=== PATIENT | male | born 1960 | race Caucasian/White ===

== ENCOUNTER 2024-04-06 14:48 | Outpatient (AMB) | payer OTHER, SELFPAY ==
[2024-04-06 14:50] VITALS: BP 124/70; PULSE 61; O2SAT 98; BMI 27.2
--- NOTE | 2024-04-06 14:50 | HO.NEPHOV_ITS ---
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 Accompanied by: Spouse Allergies tirzepatide [From James] Allergy (Unknown, Verified 04/06/24 14:53) Diarrhea Medication List - Last Reconciled 04/06/24 by Sean Mckeon MD amlodipine 5 mg PO DAILY aspirin 81 mg PO DAILY atenolol-chlorthalidone 100-25 mg 1 tab PO DAILY empagliflozin (Jardiance) 10 mg PO DAILY insulin glargine (Lantus Solostar U-100 Insulin) 25 units subcut lisinopril 40 mg PO DAILY meloxicam 15 mg PO DAILY PRN metformin 1,000 mg PO BID oxycodone mg PO DAILY PRN rosuvastatin 40 mg PO DAILY HPI Comments Details: Luis is a pleasant 64-year-old man with a history of diabetes mellitus for almost 20 years. Overall blood sugar has been well controlled. He also history of hypertension. He is on lisinopril 40 mg, atenolol with chlorthalidone. There has been no recent change in the dosage. Serum creatinine has been between 1.1 and 1.2 mg/dL for last few years. In October and 02/27/2024 serum creatinine was 1.4 mg/dL hence this referral. He was also had 1+ proteinuria by dipstick. Few months ago Jardiance has been added. History of coronary artery disease status post stent placement some more than 10 years ago. History of to renal stones. Underwent urological procedure more than 10 years ago. No further renal stones. Recent renal ultrasonogram done within the last year at the urology office was reportedly unremarkable. History of dyslipidemia. He has stopped taking statins recently due to myalgia. Family history of diabetes mellitus. No family history of kidney disease. He has no history of smoking. No history of any alcohol abuse. [facility] Medical History (Updated 04/06/24 @ 15:25 by Sean Mckeon MD) Hypertriglyceridemia Hypercholesterolemia History of kidney stones Spinal stenosis of lumbar region Discogenic lumbar pain Albuminuria Renal disorder Chronic kidney disease, stage 1 Cyst of left kidney Left inguinal hernia Coronary arteriosclerosis Hypertensive renal disease Thyroid nodule Neuropathy Surgical History History of left hip replacement (~01/2022) Family History Mother Diabetes mellitus Hypertensive disorder Arthritis Heart disease Kidney disease Depressive disorder Sister Diabetes mellitus Father Diabetes mellitus Physical Exam Vital Signs: Last Vital Signs Pulse 61 04/06/24 14:50 BP 124/70 04/06/24 14:50 Pulse Ox 98 04/06/24 14:50 Oxygen Delivery Method Room Air 04/06/24 14:50 BMI result Body Mass Index 27.2 Const General: comfortable; No acute distress Orientation/consciousness: patient oriented x3 Eyes General: appearance normal, both eyes and all related structures Visual Acevedo: normal visual acevedo by confrontation Neck Neck: Yes supple and Yes no JVD Resp Effort & Inspection: normal respiratory effort and respiratory effort not decreased Auscultation: rhonchi Cardio Palpation: no palpable S3 and no palpable S4 Heart sounds: no rubs GI Inspection: Yes normal to inspection Palpation (GI): Soft to palpation Percussion: Yes normal to percussion Auscultation: normal bowel sounds General: Yes no CVA tenderness Back/Spine/Pelvis Back: no CVA tenderness Skin General skin exam: no petechiae and no purpura Neuro General: patient oriented x3 and no focal motor deficits Extrem General: No clubbing and No edema Results Reviewed Results Reviewed: 02/27/2024 serum creatinine 1.4 UA shows 1+ proteinuria no blood. Nephrology Results: No Data to Display Assessment & Plan Assessment & Plan (1) CKD (chronic kidney disease): Code(s): N18.9 - Chronic kidney disease, unspecified Category: Medical (2) Proteinuria: Code(s): R80.9 - Proteinuria, unspecified Category: Medical (3) HTN (hypertension): Code(s): I10 - Essential (primary) hypertension Category: Medical (4) Diabetes mellitus: Code(s): E11.9 - Type 2 diabetes mellitus without complications Category: Medical Plan 64-year-old man with longstanding diabetes mellitus and hypertension with mild CKD with non nephrotic range proteinuria. Proteinuria is most likely due to underlying diabetic hypertensive kidney disease. I will quantify the proteinuria and initiate workup. Check urine protein creatinine ratio. CKD is most likely due to hypertensive diabetic kidney disease. No evidence of obstruction based on recent ultrasonogram. Urine findings are rather benign and therefore glomerular nephritis or interstitial disease seem unlikely at this point. Recommendation Check urine protein creatinine ratio. Check 24 urine collection for creatinine clearance Maintain blood pressure less than 130/80 Agree with SUKHDEEP inhibition and SGLT2 inhibitor for cardiorenal protection. Continue overt nephrotoxic agents including NSAIDs. Encouraged to stand low-sodium diet Increase p.o. fluid intake. Further workup will be determined based on the outcome of the above investigations. I have reassured him and we will keep you updated. Orders: Orders Total Protein Urine Random Today N18.9 - Chronic kidney disease, unspecified, R80.9 - Proteinuria, unspecified Creatinine Clearance Urine 24U Today N18.9 - Chronic kidney disease, unspecified, R80.9 - Proteinuria, unspecified Basic Metabolic Panel Today N18.9 - Chronic kidney disease, unspecified, R80.9 - Proteinuria, unspecified Protein Electrophoresis, Serum Today N18.9 - Chronic kidney disease, unspecified, R80.9 - Proteinuria, unspecified Creatinine, 24 Hr Group Today N18.9 - Chronic kidney disease, unspecified, R80.9 - Proteinuria, unspecified Creatinine Urine Today N18.9 - Chronic kidney disease, unspecified, R80.9 - Proteinuria, unspecified UA and rflx microscopic Today N18.9 - Chronic kidney disease, unspecified, R80.9 - Proteinuria, unspecified Coding Level of Care Code New Pt Level 4 (46198) Diagnoses CKD (chronic kidney disease) N18.9 Proteinuria R80.9 HTN (hypertension) I10 Diabetes mellitus E11.9
== END 2024-04-06 15:22 | disposition home or self-care (01) ==
LOC: HO.HKA 14:48
PROVIDERS: PCP Pediatrics; Referring Provider Pediatrics; Visit Provider Internal Medicine Hypertension Specialist
DX: I12.9 Hypertensive chronic kidney disease with stage 1 through stage 4 chronic kidney disease, or unspecified chronic kidney disease (principal); E11.22 Type 2 diabetes mellitus with diabetic chronic kidney disease; N18.2 Chronic kidney disease, stage 2 (mild); R80.9 Proteinuria, unspecified
CPT/HCPCS: 99204

== ENCOUNTER → 2024-04-06 14:48 | Outpatient (BNVA) | payer OTHER, SELFPAY | PROVIDERS: PCP Pediatrics; Referring Provider Pediatrics; Visit Provider Internal Medicine Hypertension Specialist ==

== ENCOUNTER 2024-05-10 14:09 | Outpatient (AMB) | payer OTHER, SELFPAY ==
--- NOTE | 2024-05-10 14:13 | HO.NEPHOV_ITS ---
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 Accompanied by: Spouse Allergies tirzepatide [From Nabilro] Allergy (Unknown, Verified 05/10/24 14:15) Diarrhea Medication List - Last Reconciled 05/10/24 by Sean Mckeon MD amlodipine 5 mg PO DAILY aspirin 81 mg PO DAILY atenolol-chlorthalidone 100-25 mg 1 tab PO DAILY empagliflozin (Jardiance) 10 mg PO DAILY insulin glargine (Lantus Solostar U-100 Insulin) 25 units subcut lisinopril 40 mg PO DAILY meloxicam 15 mg PO DAILY PRN metformin 1,000 mg PO BID oxycodone mg PO DAILY PRN rosuvastatin 40 mg PO DAILY HPI Comments Details: Luis is a pleasant 64-year-old man with a history of diabetes mellitus for almost 20 years. Overall blood sugar has been well controlled. He also history of hypertension. He is on lisinopril 40 mg, atenolol with chlorthalidone. There has been no recent change in the dosage. Serum creatinine has been between 1.1 and 1.2 mg/dL for last few years. In October and 02/27/2024 serum creatinine was 1.4 mg/dL hence this referral. He was also had 1+ proteinuria by dipstick. Few months ago Jardiance has been added. History of coronary artery disease status post stent placement some more than 10 years ago. History of to renal stones. Underwent urological procedure more than 10 years ago. No further renal stones. Recent renal ultrasonogram done within the last year at the urology office was reportedly unremarkable. History of dyslipidemia. He has stopped taking statins recently due to myalgia. Family history of diabetes mellitus. No family history of kidney disease. He has no history of smoking. No history of any alcohol abuse. [facility] Medical History (Updated 04/06/24 @ 15:25 by Sean Mckeon MD) Hypertriglyceridemia Hypercholesterolemia History of kidney stones Spinal stenosis of lumbar region Discogenic lumbar pain Albuminuria Renal disorder Chronic kidney disease, stage 1 Cyst of left kidney Left inguinal hernia Coronary arteriosclerosis Hypertensive renal disease Thyroid nodule Neuropathy Surgical History History of left hip replacement (~01/2022) Family History Mother Diabetes mellitus Hypertensive disorder Arthritis Heart disease Kidney disease Depressive disorder Sister Diabetes mellitus Father Diabetes mellitus Physical Exam Vital Signs: Last Vital Signs BP 118/62 05/10/24 14:14 BMI result Body Mass Index 26.6 Results Reviewed Nephrology Results: No Data to Display Assessment & Plan Assessment & Plan (1) CKD (chronic kidney disease): Code(s): N18.9 - Chronic kidney disease, unspecified Category: Medical (2) Proteinuria: Code(s): R80.9 - Proteinuria, unspecified Category: Medical (3) HTN (hypertension): Code(s): I10 - Essential (primary) hypertension Category: Medical (4) Diabetes mellitus: Code(s): E11.9 - Type 2 diabetes mellitus without complications Category: Medical Plan 64-year-old man with longstanding diabetes mellitus and hypertension with mild CKD with non nephrotic range proteinuria. urine protein creatinine ratio was 130. Not a significant amount. CKD is most likely due to hypertensive diabetic kidney disease. No evidence of obstruction based on recent ultrasonogram. Urine findings are rather benign and therefore glomerular nephritis or interstitial disease seem unlikely at this point. Maintain blood pressure less than 130/80 Agree with SUKHDEEP inhibition and SGLT2 inhibitor for cardiorenal protection. Avoid nephrotoxic agents including NSAIDs. Encouraged to stay on low-sodium diet Increase p.o. fluid intake. Orders: Orders Basic Metabolic Panel 3 Months N18.9 - Chronic kidney disease, unspecified Basic Metabolic Panel 6 Months N18.9 - Chronic kidney disease, unspecified Coding Level of Care Code Est Pt Level 4 (25708) Diagnoses CKD (chronic kidney disease) N18.9 Proteinuria R80.9 HTN (hypertension) I10 Diabetes mellitus E11.9
[2024-05-10 14:14] VITALS: BP 118/62; BMI 26.6
== END 2024-05-10 14:31 | disposition home or self-care (01) ==
PROVIDERS: PCP Pediatrics; Visit Provider Internal Medicine Hypertension Specialist
DX: I12.9 Hypertensive chronic kidney disease with stage 1 through stage 4 chronic kidney disease, or unspecified chronic kidney disease (principal); E11.22 Type 2 diabetes mellitus with diabetic chronic kidney disease; N18.2 Chronic kidney disease, stage 2 (mild); R80.9 Proteinuria, unspecified
CPT/HCPCS: 99214

== ENCOUNTER → 2024-05-10 14:09 | Outpatient (BNVA) | payer OTHER, SELFPAY | PROVIDERS: PCP Pediatrics; Visit Provider Internal Medicine Hypertension Specialist ==

== ENCOUNTER 2024-11-15 14:20 | Outpatient (AMB) | payer OTHER, SELFPAY ==
--- NOTE | 2024-11-15 14:22 | HO.NEPHOV_ITS ---
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 Overall blood sugar has been well controlled. He also history of hypertension. He is on lisinopril 40 mg, atenolol with chlorthalidone. There has been no recent change in the dosage. Serum creatinine has been between 1.1 and 1.2 mg/dL for last few years. In October and 02/27/2024 serum creatinine was 1.4 mg/dL hence this referral. He was also had 1+ proteinuria by dipstick. Few months ago Jardiance has been added. History of coronary artery disease status post stent placement some more than 10 years ago. History of to renal stones. Underwent urological procedure more than 10 years ago. No further renal stones. Recent renal ultrasonogram done within the last year at the urology office was reportedly unremarkable. History of dyslipidemia. He has stopped taking statins recently due to myalgia. Family history of diabetes mellitus. No family history of kidney disease. He has no history of smoking. No history of any alcohol abuse. 11/15/24 64-year-old male presenting with diabetes mellitus for a routine nephrology follow-up. The focus of the visit was to assess renal function stability considering his chronic kidney disease likely Stage 2. His laboratory evaluations displayed stable creatinine levels, minimally changing from 1.11 to 1.12, with past levels as high as 1.4, which have decreased steadily to the current measurement. His control of diabetes is maintained with an A1c of 6.2, reflecting stable glycemic regulation. He shows no signs suggestive of worsening kidney function, such as proteinuria or significant changes in BUN, recorded within the normal range. Blood pressure monitoring remains well-controlled at 120/60 mmHg. Previous kidney function compared to earlier labs has shown improvement, aligning with the current stable state. He has been conscientious of his fluid intake and dietary salt, seemingly supporting kidney function maintenance. [facility] Medical History (Updated 04/06/24 @ 15:25 by Sean Mckeon MD) Hypertriglyceridemia Hypercholesterolemia History of kidney stones Spinal stenosis of lumbar region Discogenic lumbar pain Albuminuria Renal disorder Chronic kidney disease, stage 1 Cyst of left kidney Left inguinal hernia Coronary arteriosclerosis Hypertensive renal disease Thyroid nodule Neuropathy Surgical History History of left hip replacement (~01/2022) Family History Mother Diabetes mellitus Hypertensive disorder Arthritis Heart disease Kidney disease Depressive disorder Sister Diabetes mellitus Father Diabetes mellitus Physical Exam Vital Signs: Last Vital Signs Pulse 58 11/15/24 14:25 BP 120/60 11/15/24 14:25 Pulse Ox 98 11/15/24 14:25 Oxygen Delivery Method Room Air 11/15/24 14:25 BMI result Body Mass Index 25.5 Const General: comfortable; No acute distress Orientation/consciousness: patient oriented x3 Eyes General: appearance normal, both eyes and all related structures Visual Acevedo: normal visual acevedo by confrontation Neck Neck: Yes supple and Yes no JVD Resp Effort & Inspection: normal respiratory effort and respiratory effort not decreased Auscultation: rhonchi Cardio Palpation: no palpable S3 and no palpable S4 Heart sounds: no rubs GI Inspection: Yes normal to inspection Palpation (GI): Soft to palpation Percussion: Yes normal to percussion Auscultation: normal bowel sounds General: Yes no CVA tenderness Back/Spine/Pelvis Back: no CVA tenderness Skin General skin exam: no petechiae and no purpura Neuro General: patient oriented x3 and no focal motor deficits Extrem General: No clubbing and No edema Results Reviewed Nephrology Results: No Data to Display Assessment & Plan Assessment & Plan (1) CKD (chronic kidney disease): Code(s): N18.9 - Chronic kidney disease, unspecified Category: Medical (2) Proteinuria: Code(s): R80.9 - Proteinuria, unspecified Category: Medical (3) HTN (hypertension): Code(s): I10 - Essential (primary) hypertension Category: Medical (4) Diabetes mellitus: Code(s): E11.9 - Type 2 diabetes mellitus without complications Category: Medical Plan 64-year-old man with longstanding diabetes mellitus and hypertension with mild CKD with non nephrotic range proteinuria. urine protein creatinine ratio was 130. Not a significant amount. CKD is most likely due to hypertensive diabetic kidney disease. No evidence of obstruction based on recent ultrasonogram. Urine findings are rather benign and therefore glomerular nephritis or interstitial disease seem unlikely at this point. Cr is down to 1.12 ( from 1.4 in Feb 2024) Maintain blood pressure less than 130/80 Agree with SUKHDEEP inhibition and SGLT2 inhibitor for cardiorenal protection. Avoid nephrotoxic agents including NSAIDs. Encouraged to stay on low-sodium diet Increase p.o. fluid intake. Orders: Orders Basic Metabolic Panel 9 Months I10 - Essential (primary) hypertension, N18.9 - Chronic kidney disease, unspecified Total Protein Urine Random 9 Months I10 - Essential (primary) hypertension, N18.9 - Chronic kidney disease, unspecified UA and rflx microscopic 9 Months I10 - Essential (primary) hypertension, N18.9 - Chronic kidney disease, unspecified Creatinine Urine 9 Months I10 - Essential (primary) hypertension, N18.9 - Chronic kidney disease, unspecified Coding Level of Care Code Est Pt Level 4 (63432) Diagnoses CKD (chronic kidney disease) N18.9 Proteinuria R80.9 HTN (hypertension) I10 Diabetes mellitus E11.9
[2024-11-15 14:25] VITALS: BP 120/60; PULSE 58; O2SAT 98; BMI 25.5
--- OUTSIDE RECORDS SUMMARY | 2024-11-15 16:18 | XMS_ITS | Data Portability ---
Author Organization [facility], Main Office Address [address] [facility] [facility] [place] [id number] Care Team Providers Care Historic Interpreter Name Role Phone [facility] Vehicle Assembler NATASHA SMALLS Supply Chain Logistics Manager DANNI KILPATRICK Numerical Control Machine Operator AUSTIN PASCAL Urologist MATTHEW DALTON Primary Care Provider [phone] BING JONES Walking Dragline Operator CONG PENA Delivery Man [facility]FUN[facility] Orthopedic Surgeon ESTRADA JOYA Experience Planning Strategist MICHAELA GUERRERO Vehicle Assembler Assessment No assessment recorded. Plan of Treatment Reminders Order Date Submit Date Provider Last Modified By Organization Details Last Modified Time Details Appointments BILLING ONLY 2024 09:45A M SHIN SCHEDULE Not available Not available Not available PE EST 2024 02:45P M Matthew Dalton MD Not available Not available Not available Lab CMP, serum or plasma 2024 025 [facility] (Centralized Electronic Ordering - All Locations), Patient Can Go To The Location Of Their Choice, [id number] 11/12/2024 16:03:32 magnesium , serum or plasma 2024 025 [facility] (Centralized Electronic Ordering - All Locations), Patient Can Go To The Location Of Their Choice, [id number] 11/12/2024 16:03:32 microalbu min/creat inine, mass ratio, urine 2024 025 [facility] (Centralized Electronic Ordering - All Locations), Patient Can Go To The Location Of Their Choice, [id number] 11/12/2024 16:27:10 lipid panel, serum 2024 025 [facility] ([facility] - [facility] Locations), Patient Can Go To The Location Of Their Choice, [id number] 11/12/2024 16:03:32 hemoglobi n A1C, fingersti ck 2024 025 CHIVO In-Office Order, Internal Use Only DO Not Attach Compendium DO Not Attach Compendium, Do Not Delete/merge, [id number] 11/12/2024 15:47:04 magnesium , serum or plasma 2024 025 [facility] ([facility] Order[facility] - All Locations), Patient Can Go To The Location Of Their Choice, [id number] 08/14/2024 06:07:48 BMP, serum or plasma 2024 025 [facility] (Centralized Electronic Ordering - All Locations), Patient Can Go To The Location Of Their Choice, [id number] 08/14/2024 06:07:47 hemoglobi n A1C, fingersti ck 2024 025 [facility] In-Office Order, Internal Use Only DO Not Attach Compendium DO Not Attach Compendium, Do Not Delete/merge, [id number] 06/18/2024 15:33:48 Referral None recorded. Procedures None recorded. Surgeries None recorded. Imaging None recorded. Medication Orders lisinopri l 20 mg tablet 2024 025 [id number], [address] [place], [address], 11/12/2024 16:01:42 Patient TargetsNo targets recorded. Patient Instructions Encounter Date Encounter Id Patient Instructions Last Modified By Organization Details Last Modified Time 06/18/2024 [id number] medicines to avoid with kidney disease: care instructions Not available 06/18/2024 15:46:45 Medications (OTC, herbal therapies, supplements) reviewed and reconciled with patient and or caregiver, including potential side effects, drug interactions, instructions, and the consequences of not taking medication. Reviewed potential barriers to medication adherence, such as side effects from medication or cost of medication. [email or web address] Not available 06/18/2024 15:25:53 11/12/2024 [id number] medicines to avoid with kidney disease: care instructions Not available 11/12/2024 15:54:25 Medications (OTC, herbal therapies, supplements) reviewed and reconciled with patient and or caregiver, including potential side effects, drug interactions, instructions, and the consequences of not taking medication. Reviewed potential barriers to medication adherence, such as side effects from medication or cost of medication. nancy Not available 11/12/2024 15:37:40 Reason for Referral None Reported. Results Created Date Observation Date Name Description Value Unit Range Abnormal Flag Note LastModifiedBy Organization Detail LastModifiedTime 06/18/1906/18/2024 hemog lobin A1C, finge rstic k A1C 6.3 % 4-6 abnormal Not Available In-Office Order Internal Use Only DO Not Attach Compendium DO Not Attach Compendium, Do Not Delete/merge, [id number] 06/18/2024 12:52:05 08/14/1908/13/2024 BASIC METAB OLIC PANEL (8) glucose 135 mg/dL 70-99 above high normal Not Available [facility] ([facility]) [address] [place], [address], 08/14/2024 06:07:47 08/14/19 25 08/13/2024 BASIC METAB OLIC PANEL (8) BUN 24 mg/dL 8-27 normal Not Available [facility] ([facility]) [address] [place], [address], 08/14/2024 06:07:47 08/14/19 25 08/13/2024 BASIC METAB OLIC PANEL (8) creatinine 1.11 mg/dL 0.76-1 .27 normal Not Available [facility] ([facility]) [address] [place], [address], 08/14/2024 06:07:47 08/14/19 25 08/13/2024 BASIC METAB OLIC PANEL (8) eGFR 75 mL/mi n/1.7 3 >59 normal Not Available [facility] ([facility]) [address] [place], [address], 08/14/2024 06:07:47 08/14/19 25 08/13/2024 BASIC METAB OLIC PANEL (8) BUN/creatini ne ratio 22 10-24 normal Not Available [facility] ([facility]) [address] [facility] [place], [address], 08/14/2024 06:07:47 08/14/19 25 08/13/2024 BASIC METAB OLIC PANEL (8) sodium 139 mmol/ L 134-14 4 normal Not Available [facility] ([facility]) [address] [facility] [place], [address], 08/14/2024 06:07:47 08/14/19 25 08/13/2024 BASIC METAB OLIC PANEL (8) potassium 4.5 mmol/ L 3.5-5. 2 normal Not Available [facility] ([facility]) [address] [facility] [place], [address], 08/14/2024 06:07:47 08/14/19 25 08/13/2024 BASIC METAB OLIC PANEL (8) chloride 98 mmol/ L 96-106 normal Not Available [facility] ([facility]) [address] [facility] [place], [address], 08/14/2024 06:07:47 08/14/19 25 08/13/2024 BASIC METAB OLIC PANEL (8) carbon dioxide, total 23 mmol/ L 20-29 normal Not Available [facility] ([facility]) [address] [facility] [place], [address], 08/14/2024 06:07:47 08/14/19 25 08/13/2024 BASIC METAB OLIC PANEL (8) calcium 9.7 mg/dL 8.6-10 .2 normal Not Available [facility] ([facility]) [address] [facility], [place], [address], 08/14/2024 06:07:47 08/14/19 25 08/13/2024 MAGNE SIUM magnesium 2.1 mg/dL 1.6-2. 3 normal Not Available [facility] ([facility]) [address] [facility], [place], [address], 08/14/2024 06:07:48 11/13/19 25 11/12/2024 hemog lobin A1C, finge rstic k A1C 6.2 % 4-6 abnormal Not Available In-Office Order Internal Use Only DO Not Attach Compendium DO Not Attach Compendium, Do Not Delete/merge, [id number] 11/12/2024 15:37:50 08/10/19 25 ECG 12-le ad No observ ation record ed. [facility] [address] [place], [address], 08/10/2024 06:37:43 Result Notes None recorded. Problems Name Problem SNOMED Code Status Onset Date Resolution Date Notes Provider Name and Address Organization Details Recorded Time Hypertri glycerid emia 152371177 Active 2020 Not Available [facility] 23:02:24 Type 2 diabetes mellitus 23988088 Completed 202002/02/2021 Lise Pacheco PA-C [address] [facility] [address], [place], [address] , [facility] 14:50:21 Hypercho lesterol emia 56886979 Active 2020 Not Available [facility] 23:02:24 Creatine kinase level above referenc e range 991685893 Completed 202004/09/2021 Matthew Dalton MD [address] [facility] [address], [place], [address] , [facility] 1 13:28:28 Osteoart hritis of hip 551986588 Completed 202002/06/2023 Matthew Dalton MD [address], [place], [address] , [facility] 3 15:46:45 Degenera tion of lumbar interver tebral disc 40680878 Active 2020 Not Available [facility] 23:02:24 History of calculus of kidney 175199963 Active 2020 Not Available [facility] 1 23:02:24 Testoste jen level below referenc e range 124438752 Active 2020 Not Available [facility] 1 23:02:24 Osteoart hritis of left hip joint 84708285600 9108 Completed 202001/14/2022 Matthew Dalton MD [address], [place], [address] , [facility] 2 14:56:31 Spinal stenosis of lumbar region 76483193 Active 2020 Not Available [facility] 1 23:02:24 Microalb uminuric diabetic nephropa thy 253714013 Active 2020 Not Available [facility] 1 23:02:24 Lumbar discogen ic pain 841659393 Active 2020 Not Available [facility] 1 23:02:24 Albuminu aristeo 752370968 Active 2021 Matthew Dalton MD [address], [place], [address] , [facility] 2 21:46:31 Renal disorder due to type 2 diabetes mellitus 024584764 Active 2021 Matthew Dalton MD [address], [place], [address] , [facility] 2 09:44:36 Displace ment of lumbar interver tebral disc without myelopat hy 46972584 Active 2021 Matthew Dalton MD [address] [address], [place], [address] , [facility] 2 11:53:31 History of left hip replacem ent 35881412437 [address] Active 2021 Matthew Dalton MD [address] [facility] [address], [place], [address] , [facility] 2 14:56:41 Cyst of kidney 135538261 Active 2021 left Matthew Dalton MD [address] [facility] [address], [place], [address] , [facility] 2 15:18:51 Left inguinal hernia 809563122 Active 2021 Matthew Dalton MD [address] [address], [place], [address] , [facility] 2 15:19:14 Ulnar neuropat hy 001908169 Completed 202102/06/2023 Matthew Dalton MD [address] [address], [place], [address] , [facility] 3 15:46:49 Long-ter m current use of insulin 146773237 Active 2022 Lise Pacheco PA-C [address] [facility] [address], [place], [address] , [facility] 3 16:02:45 Coronary arterios clerosis 22574410 Active 2022 Matthew Dalton MD [address] [facility] [address], [place], [address] , [facility] 3 19:31:25 Thyroid nodule 274674724 Active 2022 right isthmus 1.4cm, needs 1 yr f/u Matthew Dalton MD [address], [place], [address] , [facility] 3 19:14:38 Microalb uminuria 452131221 Active 2022 Lise Pacheco PA-C [address] [facility] [address], [place], [address] , [facility] 3 14:51:36 Hyperten sive renal disease 19107284 Active 2022 Dipti Toure null, [facility] 3 13:01:50 Neuropat hy due to diabetes mellitus 290611591 Active 2023 Matthew Dalton MD [address], [place], [address] , [facility] 4 10:49:25 Internal hemorrho ids 97598228 Active 2023 Matthew Dalton MD [address], [place], [address] , [facility] 4 23:14:06 Hyperten sive nephrosc lerosis 758760144 Active 2023 Matthew Dalton MD [address] [facility] [address], [place], [address] , [facility] 4 12:27:57 Chronic kidney disease stage 2 820132654 Active 2024 Lise Pacheco PA-C [address], [place], [address] , [facility] 5 12:51:37 Right bundle branch block 21014068 Active 2024 Matthew Dalton MD [address], [place], [address] , [facility] 5 06:37:33 Problem Notes None recorded. Procedures Surgical History Date Name Laterality Status Provider Name and Address Organization Details Recorded Time 2023 Colonoscopy completed Matthew Dalton MD [address], [place], [address], [facility] 4 05:47:53 2022 Diabetic Foot Exam (Monofilament) completed Matthew Dalton MD [address], [place], [address], [facility] 3 15:50:27 2021 iridotomy completed Matthew Dalton MD [address], [place], [address], [facility] 2 14:22:23 2021 Diabetic Foot Exam (Monofilament) completed Dominique Cardoza MA [facility] 2 14:18:35 2021 iridotomy completed Matthew Dalton MD [address] [facility] [address], [place], [address], [facility] 2 14:22:08 2021 total replacement of left hip joint completed Dianne Irwin RN [facility] 2 09:51:57 2021 stress echocardiography completed Matthew Dalton MD [address], [place], [address], [facility] 2 20:40:18 2013 cardiac catheterization completed Matthew Dalton MD [address], [place], [address], [facility] 1 22:39:02 2011 Colonoscopy completed Matthew Dalton MD [address], [place], [address], [facility] 1 10:17:12 2011 esophagogastroduodenoscopy completed Era Culver [facility] 1 15:00:11 2010 cardiac catheterization completed Matthew Dalton MD [address] [facility] [address], [place], [address], [facility] 3 19:32:29 Imaging Results None recorded. Procedure Notes None recorded. Medical Equipment None Reported. Allergies No known drug allergies Medications Name Sig Start Date Stop Date Status Note LastModified by Organization Details LastModified Time amoxicilli n 500 mg capsule TAKE 4 CAPSULES BY MOUTH 30-60 MIN PRIOR TO PROCEDUR E. active Not Available Not Available No t Available metformin 500 mg tablet TAKE 2 TABLETS BY MOUTH TWICE A DAY active Not Available Not Available No t Available atenolol 100 mg-chlorth alidone 25 mg tablet TAKE 1 TABLET BY MOUTH EVERY DAY active Not Available Not Available No t Available meloxicam 15 mg tablet TAKE 1 TABLET DAILY active Not Available Not Available No t Available lisinopril 20 mg tablet Take 1 tablet every day by oral route for 90 days. 2024 active Not Available Not Available Not Avai lable glipizide 10 mg tablet Take 1 tablet every day by oral route for 90 days. 04/09 completed Not Available Not Available Not Available prednisone 20 mg tablet 07/11 completed Not Available Not Available Not Available amlodipine 2.5 mg tablet TAKE 1 TABLET BY MOUTH EVERY DAY 01/14 completed Not Available Not Available Not Available potassium chloride ER 10 mEq tablet,ext ended release TAKE 1 TABLET DAILY active Not Available Not Available No t Available amlodipine 5 mg tablet TAKE 1 TABLET BY MOUTH EVERY DAY active Not Available Not Available No t Available tramadol 50 mg tablet TAKE 1 TO 2 TABLETS BY MOUTH EVERY 6 HOURS NEEDED FOR MILD PAIN. DO NOT EXCEED 8 TABLETS (400MG) PER DAY. 12/12 completed Not Available Not Available Not Available meloxicam 7.5 mg tablet Take 1 tablet every day by oral route for 45 days. 09/03 completed Not Available Not Available Not Available alprazolam 0.5 mg tablet Take 1 tablet every day by oral route for 30 days. 04/09 completed Not Available Not Available Not Available aspirin 325 mg tablet,del ayed release TAKE ONE TABLET TWICE A DAY FOR 30 DAYS. MEDICATI ON TO BE STARTED AFTER SURGERY. 12/07 completed Not Available Not Available Not Available OneTouch Ultra Test strips USE 1 STRIP THREE TIMES A DAY TO TEST BLOOD SUGAR active Not Available Not Available No t Available pantoprazo le 40 mg tablet,del ayed release TAKE 1 TABLET BY MOUTH EVERY DAY 12/12 completed Not Available Not Available Not Available docusate sodium 100 mg capsule TAKE 1 CAPSULE BY MOUTH TWICE A DAY DIRECTED . START AFTER SURGERY 12/12 completed Not Available Not Available Not Available lisinopril 40 mg tablet TAKE 1 TABLET BY MOUTH EVERY DAY active Not Available Not Available No t Available naproxen 500 mg tablet Take 1 tablet twice a day by oral route for 15 days. 12/26 completed Not Available Not Available Not Available oxycodone 5 mg tablet TAKE 1 TABLET BY MOUTH EVERY 4 HOURS UP TO 5 TIMES A DAY NEEDED FOR PAIN active Not Available Not Available No t Available rosuvastat in 10 mg tablet TAKE 1 TABLET DAILY 12/07 completed Not Available Not Available Not Available rosuvastat in 20 mg tablet TAKE 1 TABLET BY MOUTH EVERY DAY 09/03 completed Not Available Not Available Not Available rosuvastat in 40 mg tablet TAKE 1 TABLET BY MOUTH EVERY DAY active Not Available Not Available No t Available Multivitam in 50 Plus tablet Take 1 tablet every day by oral route. active Not Available Not Available No t Available BD Ultra-Fine Mini Pen Needle 31 gauge x 3/16 Take 1 needle every day by miscell. route for 90 days. active Not Available Not Available No t Available Lantus Solostar U-100 Insulin 100 unit/mL (3 mL) subcutaneo us pen INJECT 20 UNITS EVERY DAY BY SUBCUTAN EOUS ROUTE FOR 90 DAYS. 11/12 completed Not Available Not Available Not Available Lantus Solostar U-100 Insulin 10-20 u daily 10/07 completed Not Available Not Available Not Available GaviLyte-G 236 gram-22.74 gram-6.74 gram-5.86 gram oral solution TAKE 8 OUNCE BY MOUTH DIRECTED DRINK A GLASS EVERY 10-15 MINUTES 02/16 completed Not Available Not Available Not Available Jardiance 10 mg tablet TAKE 1 TABLET BY MOUTH EVERY DAY active Not Available Not Available No t Available Repatha SureClick 140 mg/mL subcutaneo us pen injector INJECT 1 ML (140 MG TOTAL) UNDER THE SKIN EVERY 14 DAYS. active Not Available Not Available No t Available Soliqua 100/33 100 unit-33 mcg/mL subcutaneo us insulin pen INJECT 40 UNITS UNDER THE SKIN DAILY DIRECTED (DOSE CHANGE) 04/16 completed Not Available Not Available Not Available OneTouch Ultra Blue Test Strip Take 1 strip twice a day by miscell. route for 90 days. 02/02 completed Not Available Not Available Not Available FreeStyle Wong 14 Day Buckner Take 1 each every day by miscell. route for 30 days. 09/04 completed Not Available Not Available Not Available FreeStyle Wong 14 Day Sensor kit APPLY 1 SENSOR TO SKIN, CHANGE EVERY 14 DAYS 09/04 completed Not Available Not Available Not Available aspirin 81 mg capsule Take 1 capsule every day by oral route. active Not Available Not Available No t Available Flowflex COVID-19 Antigen Home Test kit 02/06 completed Not Available Not Available Not Available Mounjaro 7.5 mg/0.5 mL subcutaneo us pen injector INJECT 7.5 MG SUBCUTAN EOUSLY WEEKLY 12/09 completed caused too much weight loss Not Available Not Available Not Available Mounjaro 5 mg/0.5 mL subcutaneo us pen injector Inject 0.5 mL every week by subcutan eous route. active Not Available Not Available No t Available Mounjaro 2.5 mg/0.5 mL subcutaneo us pen injector INJECT 2.5 MG SUBCUTAN EOUSLY WEEKLY active Not Available Not Available No t Available Dexcom G7 Stainless Steel Finisher USED WITH SENSOR DEVICE 2024 active Not Available Not Available Not Gisela talavera Dexcom G7 Sensor device APPLY 1 SENSOR EVERY 10 DAYS active Not Available Not Available No t Available Vitals Date Recorded Body height Body mass index (BMI) Body weight Heart rate Oxygen saturation Oxygen saturation in Arterial blood by Pulse oximetry Body temperature Systolic blood pressure Diastolic blood pressure Provider Name and Address Organization Details Last Updated DateTime 5 175.26 cm 25.8 kg/m2 95174.6 6 g 61 /min 98 % 98 % 97.3 [degF] 116 mm[Hg] 67 mm[Hg] Janel cordon MA [facility] 5 15:31:46 Date Recorded Body height Body mass index (BMI) Body weight Heart rate Oxygen saturation Oxygen saturation in Arterial blood by Pulse oximetry Body temperature Systolic blood pressure Diastolic blood pressure Provider Name and Address Organization Details Last Updated DateTime 5 175.26 cm 25.4 kg/m2 65059.8 9 g 59 /min 99 % 99 % 97.4 [degF] 99 mm[Hg] 58 mm[Hg] Alysha Moreira MA [facility] 5 15:47:15 Social History Question Answer Notes LastModified by Organizat ion Details LastModified Time Tobacco Smoking Status [facility]/21/2020 13:14:39 Do You Have An Advance Directive? Yes HCP/ Yandy elisha Information not available 01/14/2022 Is Blood Transfusion Acceptable In An Emergency? Yes Information not available 11/21/2020 What Is Your Level Of Caffeine Consumption? Moderate Information not available 11/21/2020 How Much Tobacco Do You Chew? None Information not available 11/21/2020 What Type Of Diet Are You Following? REGULAR Information not available 11/21/2020 Which Illicit Or Recreational Drugs Have You Used? None Information not available 11/21/2020 Live Alone Or With Others? With Others And Dog (Sandra) [email or web address] Information not available 02/17/2024 Do You Take Precautions To Prevent Distracted Driving? Yes Information not available 11/21/2020 How Often Do You Need To Have Someone Help You When You Read Instructions, Pamphlets, Or Other Written Material From Your Doctor Or Pharmacy? Never Information not available 11/21/2020 Have You Served In The ? No Information not available 11/21/2020 Have You Or Anyone In Your Household Had Any Of The Following Symptoms In The Last 14 Days: Sore Throat, Cough, Chills, Body Aches For Unknown Reasons, Shortness Of Breath For Unknown Reasons, Loss Of Smell, Loss Of Taste, Fever At Or Greater Than 100 Degrees Fahrenheit? No Information not available 11/21/2020 Are You Or Anyone In Your Household A Health Care Provider Or Emergency Responder? No Information not available 11/21/2020 To The Best Of Your Knowledge Have You Been In Close Proximity To Any Individual Who Tested Positive For COVID-19? No Information not available 11/21/2020 *AWV ONLY* Are You Presently Prescribed Opioid Medication By PCP Or Specialist? If YES -Provider Assess The Benefit For Other, Non-opioid Pain Therapies Instead, Even If The Patient Does Not Have OUD But Is Possibly At Risk. Yes Dr. Shonna tello Information not available 11/21/2020 Have You Recently Traveled To A COVID-19 High Risk Area Or Gathering In The Last 10 Days? No Information not available 11/21/2020 What Was The Date Of Your Most Recent Tobacco Screening? 11/12/2024 Information not available 11/12/2024 How Many Children Do You Have? 2 Information not available 11/21/2020 Do You Use Protection During Sex? Always Information not available 11/21/2020 Do You Use Your Seat Belt Or Car Seat Routinely? Yes Information not available 04/09/2021 Seat Belts Used Routinely Yes Information not available 01/14/2022 Are You Sexually Active? Yes Information not available 11/21/2020 Smoke Alarm In Home Yes [email or web address] Information not available 01/14/2022 Do You Have Smoke And Carbon Monoxide Detectors In Your Home? Yes Information not available 04/09/2021 At What Age Did You Start Smoking Tobacco? 0 Information not available 11/21/2020 Are You Passively Exposed To Smoke? No Information not available 11/21/2020 How Much Tobacco Do You Smoke? No Information not available 11/21/2020 Do You Use Sunscreen Routinely? Yes Information not available 11/21/2020 How Many Years Have You Smoked Tobacco? 0 Information not available 11/21/2020 Sex: Unknown Functional Status Question Answer Note LastModified by Organizat ion Details LastModified Time Do you use any illicit or recreational drugs? No Information not available 01/14/2022 Do you or have you ever used any other forms of tobacco or nicotine? No Information not available 01/14/2022 What is your level of alcohol consumption? Occasional Information not available 11/21/2020 Do you or have you ever used smokeless tobacco? Never used smokeless tobacco Information not available 11/21/2020 Are you currently employed? Yes Information not available 11/21/2020 Are you able to walk? YESWOREST Information not available 01/14/2022 Are you able to care for yourself? Yes Information not available 11/21/2020 What is your occupation? [employer] Information not available 11/21/2020 Do you or have you ever used e-cigarettes or vape? Never used electronic cigarettes [email or web address] Information not available 01/14/2022 What is your exercise level? Occasional On the job and weight lifting Information not available 02/17/2024 Mental Status None recorded. Family History Relationship Description Onset Age of this Age Resolved Age Notes LastModified by Organization Details LastModified Time Mother Diabetes mellitus abolcun Not available 2020 13:14:28 Mother Hypertensive disorder abolcun Not available 2020 13:14:28 Mother Arthritis abolcun Not available 11/21/2020 13:14:28 Mother Heart disease abolcun Not available 2021 14:15:25 Unspecified Relation Kidney disease abolcun Not available 2021 14:15:25 Unspecified Relation Depressive disorder abolcun Not available 2021 14:15:25 Sister Diabetes mellitus abolcun Not available 2020 13:14:28 Father Diabetes mellitus abolcun Not available 2021 14:15:25 Medical History Condition Response Gout Y Kidney Stones Y Arthritis Y High Cholesterol Y Heart Problems Y Diabetes Y Hypertension Y Chicken Pox Y Immunizations Vaccine Type Date Status Note Provider Name and Address Organization Details Recorded Time COVID-19, mRNA, LNP-S, PF, 30 mcg/0.3 mL dose 09/08/19 21 completed SHIN Rojas, [facility] 07/11/2021 15:16:04 COVID-19, mRNA, LNP-S, PF, 30 mcg/0.3 mL dose 09/29/19 21 completed SHIN Rojas, [facility] 07/11/2021 15:16:04 pneumococcal polysaccharide PPV23 11/22/19 21 completed SHIN Rojas, [facility] 01/14/2022 14:15:16 Tdap 11/22/19 21 completed SHIN Rojas, [facility] 01/14/2022 14:15:16 Influenza, split virus, quadrivalent, PF 04/09/20 21 cancelled patient objection Matthew Dalton MD [address], [address], [facility] 04/09/2021 13:24:13 Past Encounters Encounter ID Performer Location Encounter Start Date Encounter Closed Date Diagnosis/Indication Diagnosis SNOMED-CT Code Diagnosis ICD10 Code Diagnosis Note [id number] Matthew Dalton MD Main Office [address] [address] 11/21/2020 12:51:20 11/21/2020 14:14:19 Type 2 diabetes mellitus 99869810 E11.9 Pt encouraged to take basal insulin nightly regardless . May need to adjust dosing depending on A1C if having any hypoglycem ic events. Administra tion of viral vaccine 51206653 Z23 Will update per pt report. Will request records from Dr. Bronson. Essential hypertension 42147310 I10 Not at goal. Will increase ACEI dose if labs show stable renal function. Screening for malignant neoplasm of colon 480142963 Z12.11 Reports that screening has been done and is current. Will request records. Hepatitis C screening 41 1102457 Z11.59 Administra tion of pneumococcal vaccine 35442491 Z23 Will update per pt report. Will request records from Dr. Bronson. Hypercholesterolemia 136 93572 E78.01 On statin, will assess control. Myalgia/my ositis - multiple 930433986 M79.10 Screen for myositis given statin therapy. Request rheumatolo gy notes as well. Fatigue 03765322 R53.83 Screen for metabolic etiologies . Left lower quadrant pain 952732985 R10.32 Related to work injury. Pt advised that OOWN and eval/treat ment need to be arranged/c oordinated via workers comp. Had CT scan done with urology for this issue. Will request report. Degenerati on of lumbar intervertebral disc 33251544 M51.36 On chronic narcotic therapy from rheum. Will try to ascertain full scope of this issue. [id number] Matthew Dalton MD Main Office [address] [facility] [address] [facility] [place] [address] 12/26/2020 11:21:03 12/26/2020 12:19:06 Essential hypertension 51450860 I10 Not at goal. Will increase ACEI dose, d/c potassium supplement and monitor lytes/samuel l function with these changes. Testostero ne level below reference range 912825055 R79.89 Discussed replacemen t therapy risks and potential benefits. Pt would like to defer for now. Uncontroll ed type 2 diabetes mellitus 338136524 E11.65 Pt encouraged to take basal insulin nightly regardless . Based on poor control will try to get him on a CGM. Has appt with next month. Microalbum inuric diabetic nephropathy 155027449 E11.21 WIll monitor as we work on better HTN and DM control. [id number] Lise Pacheco PA-C Main Office [address] [facility] [address] 02/02/2021 14:25:38 02/02/2021 15:14:28 Uncontrolled type 2 diabetes mellitus 899849346 E11.65 Total time spent teaching and coordinati ng diabetic care 45 minutes. Basic physiology of Type II Diabetes Mellitus was reviewed. Glucose records were reviewed. Goal for fasting glucose is 80-130 and 1-2 hrs after the meal under 180.Pt. was instructed on 1800 eugenio ADA diet and given 7 day sample menus to use at home. Pt. was advised to continue exercise activity by walking 30 min most days of the week. Continue metformin. Lower glipizide to 5 mg. Start Soliqua at 15 u daily and continue Lantus at 20 u daily. For every increase in soliqua by 4 u , lower lantus by 4 u as well until on 10 u and then discontinu e. AFter 2 weeks glipizide will need to be discontinu e if glucose readings are coming down to under 100 range to avoid hypoglycem ia. F/u 3 weeks. [id number] Matthew Dalton MD Main Office [address] [place] [address] 04/09/2021 12:38:21 04/09/2021 13:27:28 Essential hypertension 09977559 I10 Not at goal. Will add CCB and titrate as tolerated togoal BP <130/90. Consider weaning BB depending on response. Needs infl uenza immunization 168149210 Z23 Osteoarthr itis of left hip joint 2274016361 06332 M16.12 Reportedly at the point of needing surgery. Will consult ortho. Hopefully they will send me notes. Spinal michelle nosis of lumbar region 57662927 M48.061 Dr. Kilpatrick recommende d surgical consultati on. No recent notes or imaging results from him. I will request and see if PMR has further mgmgt advice. Testostero ne level below reference range 743847213 R79.89 Discussed replacemen t therapy risks and potential benefits. Pt would like to defer for now. [id number] Lis lemons MD Main Office [address] [place] [address] 04/17/2021 15:24:28 04/17/2021 16:14:20 Uncontrolled type 2 diabetes mellitus 528071571 E11.65 Improving diabetic control with the addition of soliqua. D/c lantus, increase soliqua to 24 u daily. Continue metformin. F/u 3-4 m. [id number] Bernardino Menchaca MD Main Office [address] [place] [address] 07/11/2021 14:57:32 07/11/2021 15:35:12 Uncontrolled type 2 diabetes mellitus 031438626 E11.65 Worsened diabetic control although weight is down since the last visit. Increase soliqua from 40 u by 4 u every 5 days until am fasting is under 100 ot until 60 u max. Continue metformin and lower total carbs. F/u 6 weeks. [id number] Randell Fitzpatrick MD Main Office [address] [facility] [address] [place] [address] 08/17/2021 15:54:36 08/17/2021 16:26:50 Uncontrolled type 2 diabetes mellitus 171727807 E11.65 Blood sugars improved significan tly. WE will continue increasing Soliqua by 2 u every 35- days until am fasting is under 120. F/u 4 m. [id number] Matthew Dalton MD Main Office [address] [address] [place] [address] 09/03/2021 14:55:38 09/03/2021 15:48:15 Uncontrolled type 2 diabetes mellitus 724274745 E11.65 Under better control. Due for labs in November. Essential hypertension 17261240 I10 Will titrate CCB as tolerated to goal BP <130/90. Consider weaning BB depending on response. not sure if K supplement is needed so pt will stop 2 weeks before next labs. Testostero ne level below reference range 349545113 R79.89 Discussed replacemen t therapy risks and potential benefits. Pt would like to defer for now. Osteoarthr itis of left hip joint 6545767588 36656 M16.12 Having left THR done on 10/17. Nocturia 077617646 R35.1 [id number] Bernardino Menchaca MD Main Office [address] [address] [place] [address] 10/04/2021 08:25:23 10/04/2021 08:26:49 [id number] Randell Fitzpatrick MD Main Office [address] [address] [place] [address] 11/06/2021 10:03:18 11/06/2021 10:05:46 [id number] Randell Fitzpatrick MD Main Office [address] [address] [place] [address] 12/07/2021 10:14:12 12/07/2021 10:16:29 [id number] Randell Fitzpatrick MD Main Office [address] [address] [place] [address] 12/18/2021 15:28:25 12/18/2021 16:01:31 Renal disorder due to type 2 diabetes mellitus 352841437 E11.21 stable diabetic control but random hypoglycem ia on Soliqua due to weight loss. Decrease dose to 30 from 38u and continue metformin. Repeat microalbum in in 3 m. If still elevated, consider Jardiance to replace metfromin. Chronic ki dney disease stage 1 302113652 N18.1 continue acei. [id number] Randell Fitzpatrick MD Main Office [address] [facility] [address] [place] [address] 01/07/2022 08:54:10 01/07/2022 08:56:18 [id number] Matthew Dalton MD Main Office [address] [facility] [address] [place] [address] 01/14/2022 14:12:44 01/14/2022 15:22:21 Adult health examination 117031705 Z00.00 COVID boosters and Shingrix advised via local pharmacy. Flu advised in the Fall. Will screen based on risk factors. Regular dental and ophtho care advised as well as seat belt and suncreen use. Distracted driving discussed. Advance directives in place. Varicella vaccination 68 659495 Z23 Essential hypertension 67901836 I10 Well controlled , continue current regimen. Hypercholesterolemia 136 61976 E78.01 On statin, will assess control. Renal diso rder due to type 2 diabetes mellitus 492485602 E11.21 Under much better control. I will assume mgmt after next VM appt. Will request copy of recent ophtho exam. Body mass index 25-29 - overweight 601437400 E66.3 Z68.27 History of left hip replacement 1912723304 981559 Z96.642 Rx provided for prophylaxi s as advised by ortho. Ulnar neuropathy 2339641 05 G56.22 Advised to try cock up splint. If persistent /worse may need ortho vs neuro eval/EMG. Left inguinal hernia 236 462513 K40.90 Fat containing , not palpable on exam and not affording any symptoms. Will monitor clinically . Advised to call if swelling ever develops. To ED with pain. [id number] Randell Fitzpatrick MD Main Office [address] [facility] [address] [place] [address] 02/07/2022 09:03:33 02/07/2022 09:13:19 [id number] Bernardino Menchaca MD Main Office [address] [place] [address] 03/11/2022 10:40:53 03/11/2022 10:43:42 [id number] Randell Fitzpatrick MD Main Office [address] [facility] [address] [place] [address] 04/11/2022 08:42:33 04/11/2022 08:44:19 [id number] Randell Fitzpatrick MD Main Office [address] [facility] [address] [place] [address] 04/24/2022 13:54:32 04/24/2022 15:20:15 Renal disorder due to type 2 diabetes mellitus 174710521 E11.21 CGM data fro March 30 through April 11 reviewed. No hypoglycem ia, 76% of the readings were on target. HgA1c is 6.9%. Continue soliqua and metformin as directed. f/u in 4 m. Influenza vaccination declined 874849161 Z28.21 Chronic ki dney disease stage 1 024333319 N18.1 continue acei. Essential hypertension 73851840 I10 rec low salt diet and monitor BP at home. f/u was already scheduled with Dr. Dalton in July. Body mass index 25-29 - overweight 751202772 E66.3 Z68.27 Pt's BMI is 28.5 and has gained 7lbs since January 2022. rec low fat and low calorie diet. [id number] Lise Pacheco PA-C Main Office [address] [facility] [address] [place] [address] 05/13/2022 13:52:49 05/13/2022 13:55:56 [id number] Randell Fitzpatrick MD Main Office [address] [facility] [address] [place] [address] 06/13/2022 10:36:30 06/13/2022 10:41:14 [id number] Matthew Dalton MD Main Office [address] [facility] [address] [place] [address] 07/15/2022 11:41:20 07/15/2022 11:43:19 [id number] Randell Fitzpatrick MD Main Office [address] [address] [place] [address] 08/12/2022 13:30:51 08/12/2022 13:32:59 [id number] Randell Fitzpatrick MD Main Office [address] [address] [place] [address] 09/03/2022 15:24:56 09/03/2022 16:01:54 Renal disorder due to type 2 diabetes mellitus 423526956 E11.21 stable type II DM with mild microalbum inuria. We will repeat cmp and urine , continue current meds. F/u 3-4 m. Chronic ki dney disease stage 1 430049493 N18.1 continue acei. Long-term current use of insulin 736265007 Z79.4 [id number] Randell Fitzpatrick MD Main Office [address] [address] [place] [address] 09/13/2022 08:41:00 09/13/2022 08:43:07 [id number] Randell Fitzpatrick MD Main Office [address] [address] [place] [address] 10/15/2022 09:46:34 10/15/2022 09:49:45 [id number] Randell Fitzpatrick MD Main Office [address] [address] [place] [address] 11/15/2022 15:46:14 11/15/2022 15:48:51 [id number] Randell Fitzpatrick MD Main Office [facility] [address] [place] [address] 12/06/2022 15:21:14 12/06/2022 16:29:07 Renal disorder due to type 2 diabetes mellitus 255167406 E11.21 HgA1c is elevated on max Soliqua. Recommend to start mounjaro 2.5 mg weekly for 4 weeks , then 5 mg weekly until next visit in 2 m. Soliqua will be discontinu ed if pt tolerates MOunjaro and insurance coverage is available. Chronic ki dney disease stage 1 846420045 N18.1 continue acei. [id number] ELTON GUILLAUME MD Main Office [address] [address] [place] [address] 12/27/2022 09:43:50 12/27/2022 09:50:30 [id number] Randell Fitzpatrick MD Main Office [address] [address] [place] [address] 01/24/2023 11:43:26 01/24/2023 11:46:42 [id number] Matthew Dalton MD Main Office [address] [address] [place] [address] 02/06/2023 14:47:14 02/06/2023 15:53:57 Adult health examination 867084355 Z00.00 COVID booster, flu and Shingrix advised via local pharmacy. Will screen based on risk factors. Regular dental and ophtho care advised as well as seat belt and suncreen use. Distracted driving discussed. Advance directives in place. Essential hypertension 13425221 I10 Well controlled , continue current regimen. Hypercholesterolemia 136 83816 E78.01 On statin, will assess control. Renal diso rder due to type 2 diabetes mellitus 046850392 E11.21 Under much better control. Optho exam utd, working with on control. Body mass index 25-29 - overweight 849078750 E66.3 Z68.29 History of left hip replacement 1160676149 270001 Z96.642 Rx provided for prophylaxi s as advised by ortho. Left inguinal hernia 236 354455 K40.90 Fat containing , not palpable on exam and not affording any symptoms. Will monitor clinically . Advised to call if swelling ever develops. To ED with pain. Nocturia 604480272 R35.1 Varicella vaccination 68 075592 Z23 Pain in both feet 944158 8172 1067553 M79.671 M79.672 Thyroid nodule 307317896 E04.1 See if u/s corroborat es exam findings. Coronary arteriosclerosis 08562099 I25.10 Asymptomat ic with fair risk factor control. Following with cardiology , will reassess labs. Testostero ne level below reference range 290807025 R79.89 Discussed replacemen t therapy risks and potential benefits. Pt would like to defer for now. Screening for malignant neoplasm of colon 904384855 Z12.11 Has GI appt upcoming. [id number] Randell Fitzpatrick MD Main Office [address] [facility] [address] [place] [address] 03/28/2023 09:26:05 03/28/2023 09:30:13 [id number] Randell Fitzpatrick MD Main Office [address] [facility] [address] [place] [address] 04/16/2023 14:25:03 04/16/2023 14:54:36 Renal disorder due to type 2 diabetes mellitus 425798148 E11.21 Stable diabetic control on mounjaro and metfromin. WE will reduce dose of metfromin to 3 tabs daily total of 1500 mg daily to avoid GI upset. Next CGM upload is scheduled for later this month. Repeat labs in June for A1c, bmp and microalbum in. F/u 4 m. Chronic ki dney disease stage 1 845610076 N18.1 continue acei. Microalbuminuria 2634582 06 R80.9 repeat microalbum in prior to next visit. Hypertensi ve renal disease 01642439 I12.9 stable HTN on low sodium diet and medication s. [id number] Randell Fitzpatrick MD Main Office [address] [address] [place] [address] 04/29/2023 13:15:42 04/29/2023 13:27:03 [id number] Randell Fitzpatrick MD Main Office [address] [address] [place] [address] 05/27/2023 08:47:50 05/27/2023 08:56:11 [id number] Randell Fitzpatrick MD Main Office [address] [address] [place] [address] 06/30/2023 08:59:56 06/30/2023 09:05:05 [id number] Matthew Dalton MD Main Office [address] [address] [place] [address] 07/30/2023 08:48:46 07/30/2023 08:52:49 [id number] ELTON GUILLAUME MD Main Office [address] [address] [place] [address] 09/05/2023 14:52:33 09/05/2023 15:32:58 Renal disorder due to type 2 diabetes mellitus 847159608 E11.21 Stable diabetic control on mounjaro and metfromin. Mounjaro 7.5 mg is not always available i the store. WE will begin jardiance at 10 mg for renal protection , reduce CKD /stroke risk. Restore dexcom uploads every 6 weeks. F/u lab for bmp in 4 weesk. F/u in 3 m. Chronic ki dney disease stage 1 424096270 N18.1 continue acei. start Jardiance small dose. Hypertensi ve renal disease 94139588 I12.9 stable HTN on low sodium diet and medication s. [id number] Bernardino Menchaca MD Main Office [address] [place] [address] 10/08/2023 13:58:52 10/08/2023 14:36:59 Diarrhea 35777646 R19.7 This is resolving so will not do stool studies. Possible viral gastro that has run its course. Doubt IBS since no hx and also having to get out of bed to have a bm. He will call if diarrhea returns and we will order stool studies at that time. May also have been related to his diabetes meds which were recently stopped. [id number] Matthew Dalton MD Main Office [address] [address] 12/10/2023 14:25:51 12/10/2023 15:05:15 Renal disorder due to type 2 diabetes mellitus 859786156 E11.21 Stable diabetic control on metformin and insulin. recommend trial of jardiance 10 mg daily. repeat bmp in 4 weeks. Reduce insulin to 20 u daily. continue metfromin. F/u 3 m. Chronic ki dney disease stage 1 776650153 N18.1 continue acei. start Jardiance small dose. Hypertensi ve renal disease 14407675 I12.9 stable HTN on low sodium diet and medication s. [id number] Matthew Dalton MD Main Office [address] [place] [address] 02/17/2024 14:45:45 02/17/2024 15:29:44 Adult health examination 530306990 Z00.00 COVID booster, flu and Shingrix advised via local pharmacy. Will screen based on risk factors. Regular dental and ophtho care advised as well as seat belt and suncreen use. Distracted driving discussed. Advance directives in place. Body mass index 25-29 - overweight 075786910 E66.3 Z68.26 Essential hypertension 09562839 I10 Well controlled , continue current regimen. Hypercholesterolemia 136 71710 E78.01 On statin, will assess control. Renal diso rder due to type 2 diabetes mellitus 539306404 E11.21 Under much better control. Optho exam utd, working with on control. History of left hip replacement 2257253672 290256 Z96.642 Rx provided for prophylaxi s as advised by ortho. Left inguinal hernia 236 316021 K40.90 Fat containing , not palpable on exam and not affording any symptoms. Will monitor clinically . Advised to call if swelling ever develops. To ED with pain. Nocturia 288930303 R35.1 Varicella vaccination 68 459681 Z23 Thyroid nodule 956523293 E04.1 See if u/s corroborat es exam findings. Coronary arteriosclerosis 88802446 I25.10 Asymptomat ic with fair risk factor control. Following with cardiology , will reassess labs. Testostero ne level below reference range 166824002 R79.89 Discussed replacemen t therapy risks and potential benefits. Pt would like to defer for now. Screening for malignant neoplasm of colon 541552010 Z12.11 Has GI appt upcoming with Dr. Hansen Muscle pain 68282010 M79 .10 Screen for myositis. Consider statin holiday if labs abnl or symptoms persist. Serum crea tinine above reference range 157618277 R79.89 Noted on recent lab work from urology but normal here in November. Denies use of nephrotoxi c agents. Advised to recheck when well hydrated. [id number] Matthew Dalton MD Main Office [address] [facility] [address] [facility] [address] 03/17/2024 14:25:48 03/17/2024 15:04:59 Renal disorder due to type 2 diabetes mellitus 571721396 E11.21 A1c is above recommende d range. Pt. did better when on Mounjaro, so is willing to restart at smaller dose. WE will start at 2.5 mg weekly for 4 weeks, and increase to maintenanc e of 5 mg weekly. Pt. will lower lantus to 15 u and in 1 m can discontinu e after increase in mounjaro to 5 mg. Continue jardiance 10 mg. See renal as recommende d. F/u 3 m. Hypertensi ve renal disease 10876784 I12.9 stable HTN on low sodium diet and medication s. Microalbuminuria 1964650 06 R80.9 repeat microalbum in prior to next visit. Influenza vaccination declined 941395042 Z28.21 Chronic ki dney disease stage 3A 149086518 N18.31 increase in creatinine from baseline as well as spot urine protein. [id number] Matthew Dlaton MD Main Office [address] [address] [place] [address] 04/29/2024 14:46:52 04/29/2024 14:48:31 [id number] Matthew Dalton MD Main Office [address] [place] [address] [place] [address] 05/31/2024 10:44:29 05/31/2024 10:50:17 [id number] Bernardino Menchaca MD Main Office [address] [address] [place] [address] 06/18/2024 15:13:34 06/18/2024 15:49:53 Hypertensive renal disease 13495593 I12.9 stable HTN on low sodium diet and medication s. Chronic ki dney disease stage 2 561119823 N18.2 continue jardiance and lisinopril . Renal diso rder due to type 2 diabetes mellitus 192804830 E11.21 Stable diabetic control. A1c is 6.3. At this point we will discontinu e lantus 10 u, continue mounjaro 2.5 mg weekly, metfromin should be at 1000 mg and small dose Jardiance. Next CGM upload is scheduled for later this month. Continue diab diet and repeat bmp. F/u 4 m. Neuropathy due to diabetes mellitus 837183959 E11.40 F/u applications manager . [id number] Bernardino Menchaca MD Main Office [address] [address] [place] [address] 09/01/2024 16:50:42 09/01/2024 16:52:14 [id number] Bernardino Menchaca MD Main Office [address] [facility] [address] [place] [address] 10/06/2024 14:27:19 10/06/2024 14:36:02 [id number] Bernardino Menchaca MD Main Office [address] [facility] [address] [place] [address] 11/08/2024 10:06:42 11/08/2024 10:08:17 [id number] Bernardino Menchaca MD Main Office [address] [facility] [address] [place] [address] 11/12/2024 15:28:48 11/12/2024 16:10:58 Neuropathy due to diabetes mellitus 800195796 E11.40 F/u applications manager . Renal diso rder due to type 2 diabetes mellitus 311490166 E11.21 Stable type II diabetes with CKD stg 2 followed by the nephrologi . A1c is in optimal repeat 6.2%.Recom to repeat microalbum in , lipids and cmp prior to physical in 3 m. Continue current treatment for diabetes , diet and exercise. F/u 6 m. Microalbum inuric diabetic nephropathy 000489653 E11.21 repeat microalbum in. F/u with renal as advised. Hypertensi ve renal disease 12138495 I12.9 Blood pressure on the low side today. Pt has slight light headedness with position change on occasion.R ecom to drop lisinopril from 40 to 20 mg daily and continue all other bp meds. Check labs , magnesium. Chronic ki dney disease stage 2 611051470 N18.2 continue jardiance and lisinopril . Hypercholesterolemia 136 78744 E78.01 repeat lipids prior to next visit. Continue current treatment and low fat diet. Health Concerns Section Related Observation LastModified by Organization Detai ls LastModified Time None Recorded Concern Status LastModified by Organization Details LastModified Time None Recorded Advance Directives Directive Y: HCP/ Yandy Payers Encounter Date Sequence Insurance Name Policy Number Policy Segura Covered Member ID Segura Member ID Guarantor Name 06/18/2024 1 [employer] ([facility]) [id number] 1 Yandy Segundo [id number] Luis Segundo 09/01/2024 1 [facility] ([facility]) [id number] 1 Yandy Segundo [id number] Luis Segundo 10/06/2024 1 [facility] ([facility] [id number] 1 Yandy Segundo [id number] Luis Segundo 11/08/2024 1 [facility] [id number] 1 Yandy Segundo [id number] Luis Segundo 11/12/2024 1 [facility] ([facility] [id number] 1 Yandy Segundo [id number] Luis Segundo Notes Date Note Type Note Provider Name and Address Organization Details Recorded Time 06/18/2024 text/html Diabetes F/UReported bypatient.Review finger sticks:fastin-150; post breakfast: ; post lunch: 200; post dinner: up to 200s range; CGM is not being uploaded. Context:seeing eye doctor regularly; checking feet regularly; taking aspirin daily; not missing doses of medications; mounjaro discontinued Associated Symptoms:no dizziness; no sweats; no headaches; no confusion; no increased thirst; no increased appetite; no increased urination; no blurred vision; no numbness of feet; no calluses on feet;weight gain ( lbs);weight loss ( lbs)Notes:HgA1c today is. Last CGM upload last month with 93% of readings in range. NO hypoglycemia.Meds: pt lowered mounjaro to 2.5 mg due to too much weight loss. Pt. was up to 7.5 mg dose. Pt. was started on Jardiance 10 mg , lantus 10 u daily.CKD have progressed to stg 2 with mild microalbuminuria. Pt. had renal consult with Dr. Joya . Renal ultrasound was unremarkable. Recommended to increase hydration , continue acei and SGLT-2 and maintain bp under 130/80 and A1c under 7%.Hypertension F/UReported bypatient.Associat ed Symptoms:no dizziness; no lightheadedness; no chest pain; no shortness of breath; no palpitations; no edema; no calf pain with exertion Lifestyle:regular exercise; limiting/avoiding salt Medications:taking medications as directed; no side effects from medication; checks blood pressure at home, range:Notes:stable HTN. Lise Pacheco PA-C [address] [address], [place], [id number], [facility] 06/18/2024 15:50:21 11/12/2024 text/html Diabetes F/UReported bypatient.Review finger sticks:fastin-150; post breakfast: ; post lunch: 200; post dinner: up to 200s range; CGM is not being uploaded. Context:seeing eye doctor regularly; checking feet regularly; taking aspirin daily; not missing doses of medications; mounjaro discontinued Associated Symptoms:no dizziness; no sweats; no headaches; no confusion; no increased thirst; no increased appetite; no increased urination; no blurred vision; no numbness of feet; no calluses on feet;weight gain ( lbs);weight loss ( lbs)Notes:HgA1c today is 6.2%. Last CGM upload last month with 83% of readings in range. NO hypoglycemia.Meds: pt lowered mounjaro to 2.5 mg due to too much weight loss. max dose of metformin and Jardiance 10 mg.CKD have progressed to stg 2 with mild microalbuminuria. Pt. had renal consult with Dr. Joya . Renal ultrasound was unremarkable. Recommended to increase hydration , continue acei and SGLT-2 and maintain bp under 130/80 and A1c under 7%. Blood pressure is currently in good control. Pt is on lisinopril.Hyperte nsion F/UReported bypatient.Associat ed Symptoms:no dizziness; no lightheadedness; no chest pain; no shortness of breath; no palpitations; no edema; no calf pain with exertion Lifestyle:regular exercise; limiting/avoiding salt Medications:taking medications as directed; no side effects from medication; checks blood pressure at home, range:Notes:stable HTN. Lise Pacheco PA-C [address] [address], [place], [id number], [facility] 11/12/2024 16:30:15
== END 2024-11-15 14:34 | disposition home or self-care (01) ==
LOC: HO.HKA 14:21
PROVIDERS: PCP Pediatrics; Visit Provider Internal Medicine Hypertension Specialist
DX: I12.9 Hypertensive chronic kidney disease with stage 1 through stage 4 chronic kidney disease, or unspecified chronic kidney disease (principal); N18.9 Chronic kidney disease, unspecified; R80.9 Proteinuria, unspecified; E11.9 Type 2 diabetes mellitus without complications
CPT/HCPCS: 99214

== ENCOUNTER → 2024-11-15 14:20 | Outpatient (BNVA) | payer OTHER, SELFPAY | PROVIDERS: PCP Pediatrics; Visit Provider Internal Medicine Hypertension Specialist ==